=== PATIENT | female | born 1980 | race Caucasian/White ===

== ENCOUNTER 2020-11-22 01:00 | Emergency (ER) | payer SELFPAY ==
--- NOTE | 2020-11-22 02:20 | NUR ---
Patient was called to be triaged but was not present.
--- NOTE | 2020-11-22 02:25 | NUR ---
Patient was called to be triaged but was not present.
--- NOTE | 2020-11-22 02:30 | NUR ---
Patient left without being seen by ERMD or triaged.
== END 2020-11-22 02:30 | disposition left against medical advice (07) ==
LOC: ER 01:02
DX: Z53.21 Procedure and treatment not carried out due to patient leaving prior to being seen by health care provider (principal)